=== PATIENT | female | born 1950 | race Two or more races ===

== ENCOUNTER 2019-04-08 13:43 | Emergency (ER) | payer MEDICAID, OTHER ==
[~2019-04-08] VITALS: Ht 167.6 cm; Wt 108.9 kg
[~2019-04-08 13:43] MED LIST: ASPIRIN81 MG NG; LISINOPRIL10 MG ORAL; MECLIZINE HCL25 MG ORAL; MELOXICAM15 MG ORAL; UNOBMED
--- NOTE | 2019-04-08 14:10 | NUR ---
ED Nurse Note: Pt went down to CT in stable condition.
[2019-04-08 14:12] VITALS: BP 128/64
--- NOTE | 2019-04-08 14:12 | NUR ---
ED Nurse Note: Patient walked in to ER with daughter c/o N/V and GRACE 10/ for 2 days. pt aao x4 and ambulatory but fatigued and weak. calm and cooperative. skin clean and intact. pt is not vomiting since she arrived in ER. daughter at bedside.
--- NOTE | 2019-04-08 14:14 | Emergency Room Report ---
History of Present Illness General Chief Complaint: Vomiting Source: Patient Present Illness HPI Patient is a 68 year old female who presented for increased headache and dizziness worsened by head movement. Patient denies any neck stiffness and had worsening of symptoms. Patient has moderate pain to head. She reports having right sided earache. Allergies: Coded Allergies: No Known Allergies (Unverified , 11/02/16) Patient History Past Medical History: see triage record Last Menstrual Period: na Reviewed Nursing Documentation: PMH: Agreed; PSxH: Agreed Nursing Documentation-PMH Past Medical History: No History, Except For Hx Cardiac Problems: Yes Hx Hypertension: Yes Hx Cancer: No Hx Gastrointestinal Problems: No Hx Neurological Problems: No Review of Systems All Other Systems: negative except mentioned in HPI Physical Exam Vital Signs Date Time Temp Pulse Resp B/P (MAP) Pulse Ox O2 Delivery O2 Flow Rate FiO2 04/08/19 13:50 98.2 86 20 94 Room Air Sp02 EP Interpretation: reviewed, normal General Appearance: normal inspection, well appearing, no apparent distress, alert, obese Head: atraumatic ENT: normal ENT inspection, hearing grossly normal, normal voice Neck: normal inspection, full range of motion, supple, no bony tend Respiratory: normal inspection, lungs clear, normal breath sounds, no respiratory distress, no retraction, no wheezing Cardiovascular #1: regular rate, rhythm, no edema Gastrointestinal: normal inspection, normal bowel sounds, non tender, soft, no guarding, no hernia Genitourinary: no CVA tenderness Musculoskeletal: normal inspection, back normal, normal range of motion Neurologic: normal inspection, alert, oriented x3, responsive, 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 Differential diagnosis include was not limited to cerebellar stroke, peripheral vertigo, myocardial infarction among others. Because of complexity of patient's case laboratory testing and imaging studies were ordered. patient was noted to have some similar symptoms in the past. CT the head read by radiology showed no evidence of acute intracranial hemorrhage or CVA. EKG interpreted by me showed normal sinus rhythm with a rate of [address] or T wave changes. Patient's laboratory testing was notable for some neutropenia and leukopenia as well as thrombocytopenia. Patient given meclizine with improvement in her symptoms. Patient was advised to follow-up with her primary care physician for further evaluation of hematologic disorder. She was advised to discontinue aspirin. She is advised to return if any worsening of condition or other concerns. Last Vital Signs Date Time Temp Pulse Resp B/P (MAP) Pulse Ox O2 Delivery O2 Flow Rate FiO2 04/08/19 13:50 98.2 86 20 94 Room Air Status: improved Disposition: HOME, SELF-CARE Condition: Stable Scripts Ondansetron (Zofran) 4 Mg Tablet 4 MG ORAL Q6H PRN for Nausea & Vomiting, #30 TAB 0 Refills Prov: Calin Pickering MD 04/08/19 Meclizine Hcl* (MECLIZINE*) 25 Mg Tablet 25 MG ORAL THREE TIMES A DAY, #30 TAB Prov: Calin Pickering MD 04/08/19 Calin Pickering MD April 08, 2019 14:14
[2019-04-08] MEDS ORDERED: Meclizine 25mg tab ORAL ONE (14:15)
[2019-04-08] MEDS ORDERED: Metoclopramide 10mg/2ml Inj IVP ONE (14:15)
--- NOTE | 2019-04-08 14:38 | NUR ---
ED Nurse Note: Blood sent to the lab. pt could not void at this moment. will wait and try again.
[2019-04-08 14:51] LABS: HEMATOCRIT 41.4 % (37.0-47.0); HEMOGLOBIN 14.4 G/DL (12.0-16.0); MEAN CORPUSCULAR VOLUME 96 FL (80-99); PLATELET COUNT 86 K/UL (150-450); RED BLOOD COUNT 4.31 M/UL (4.20-5.40); RED CELL DISTRIBUTION WIDTH 12.9 % (11.6-14.8); WHITE BLOOD COUNT 3.9 K/UL (4.8-10.8)
[2019-04-08 14:58] LABS: ANION GAP 9 mmol/L (5-15); BLOOD UREA NITROGEN 19 mg/dL (7-18); CALCIUM 9.3 MG/DL (8.5-10.1); CARBON DIOXIDE 26 MMOL/L (21-32); CHLORIDE 106 MMOL/L (98-107); CREATININE 1.1 MG/DL (0.55-1.30); POTASSIUM 3.6 MMOL/L (3.5-5.1); SODIUM 141 MMOL/L (136-145)
[2019-04-08 15:09] LABS: ALANINE AMINOTRANSFERASE 19 U/L (12-78); ALBUMIN 3.1 G/DL (3.4-5.0); ALBUMIN/GLOBULIN RATIO 0.8 (1.0-2.7); ALKALINE PHOSPHATASE 85 U/L (46-116); ASPARTATE AMINO TRANSFERASE 28 U/L (15-37); BILIRUBIN,TOTAL 1.3 MG/DL (0.2-1.0)
[2019-04-08 15:13] LABS: BILIRUBIN,DIRECT 0.3 MG/DL (0.0-0.3)
[2019-04-08] MEDS ORDERED: ZOFRAN4 MG ORAL (15:14)
[2019-04-08] MEDS ORDERED: MECLIZINE HCL25 MG ORAL (15:14)
--- NOTE | 2019-04-08 15:16 | NUR ---
ED Nurse Note: ERMD at bedside explaining to pt and daughter about the lab results and dc instruction.
[2019-04-08 15:45] VITALS: BP 117/89
--- NOTE | 2019-04-08 15:45 | NUR ---
ER DISCHARGE NOTE: Patient is cleared to be discharged per ERMD, pt is aox4, accompanied by daughter, on room air, with stable vital signs. pt was given dc and prescription instructions, pt was able to verbalize understanding, pt id band and iv site removed without complications. pt is able to ambulate with steady gait. pt took all belongings.
[2019-04-08 15:56] LABS: APPEARANCE,URINE CLOUDY; BILIRUBIN, URINE 1+ (NEGATIVE); GLUCOSE, URINE (UA) NEGATIVE (NEGATIVE); KETONES,URINE 2+ (NEGATIVE); LEUKOCYTE ESTERASE ,URINE 1+ (NEGATIVE); NITRITE,URINE NEGATIVE (NEGATIVE); PH,URINE 5 (4.5-8.0); PROTEIN,URINE 1+ (NEGATIVE); UROBILINOGEN,URINE 4 MG/DL (0.0-1.0)
[2019-04-08 15:58] LABS: COLOR,URINE AMBER
--- NOTE | 2019-04-09 11:48 | Diagnostic Imaging Report ---
Indication: Dizziness Technique: Contiguous 5 mm thick transaxial imaging of the head obtained in a Siemens Sensation [address] scanner. Soft tissue and bone windows generated. Automatic Exposure Control was utilized. Total Dose length Product (DLP): 1457.[address] Dose Index Volume (CTDIvol): 70.38 mGy Comparison: 11/02/2016 Findings: The size and configuration of the cortical sulci, basal cisterns, and ventricles are within normal limits for age. There is no mass effect, midline shift, or edema identified. There is no evidence of acute hemorrhage or abnormal intra-axial or extra-axial fluid collections. The bones and soft tissues are unremarkable. There is fluid within the maxillary sinuses bilaterally consistent with sinusitis, which appears unchanged from the last study. Impression: No mass effect, edema or acute bleed. Bilateral maxillary sinusitis. No change. [facility] has communicated the preliminary results to the Emergency Department. Their findings are largely concordant with this report. The CT scanner at [facility] is accredited by the [employer] and the scans are performed using dose optimization techniques as appropriate to a performed exam including Automatic Exposure control.
--- NOTE | 2019-04-09 19:32 | Cardiology Report ---
APPROVED REPORT EKG Measurement Heart [id number] Normal sinus rhythm Prolonged QT Abnormal ECG
== END 2019-04-08 15:45 | disposition home or self-care (01) ==
LOC: EMR 14:30
DX: H81.13 Benign paroxysmal vertigo, bilateral (principal); I10 Essential (primary) hypertension; D72.819 Decreased white blood cell count, unspecified; D69.6 Thrombocytopenia, unspecified; D70.9 Neutropenia, unspecified
CPT/HCPCS: 36415; 70450; 80053; 81001; 82248; 84484; 85007; 85025; 87086; 93005; 96374; 99284; J2765